=== PATIENT | female | born 1940 | race African-American/Black ===

== ENCOUNTER 2018-03-09 15:42 | Inpatient (IN) | payer MEDICARE ==
[~2018-03-09] VITALS: Ht 165.1 cm; Wt 48.2 kg
[2018-03-09] MEDS ORDERED: GABAPENTIN100 MG PO (15:54)
[2018-03-09] MEDS ORDERED: METFORMIN HCL500 M1 PO (15:55)
[2018-03-09] MEDS ORDERED: VENTOLIN HFA18 GM INH (15:56)
[2018-03-09] MEDS ORDERED: LASIX20 MG PO (15:56)
[2018-03-09] MEDS ORDERED: POTASSIUM CHLOR8 ME1 (15:57)
[2018-03-09] MEDS ORDERED: POTASSIUM CHLOR8 ME1 PO (15:57)
[2018-03-09] MEDS ORDERED: FEXOFENADINE H180 MG PO (15:57)
[2018-03-09] MEDS ORDERED: LUMIGAN 0.01%2.5 ML EACH EYE (15:58)
[2018-03-09] MEDS ORDERED: NORVASC5 MG PO (15:58)
[2018-03-09] MEDS ORDERED: GLUCOTROL 5 MG T5 MG PO (15:58)
[2018-03-09] MEDS ORDERED: MOBIC7.5 MG PO (15:59)
[2018-03-09] MEDS ORDERED: NORCO 10-325 TA1 TAB PO (16:00)
--- NOTE | 2018-03-09 17:25 | NUR ---
AHA DIET MEAL TRAY PROVIDED.
--- NOTE | 2018-03-09 18:03 | NUR ---
RECIEVED PT FORM ER.
--- NOTE | 2018-03-09 19:31 | NUR ---
EVENING ROUNDS COMPLETED. PT SITTING UP IN BED WITH EYES OPEN, RR EVEN AND UNLABORED. BED IN LOW POSITION. NO S/S OF DISTRESS NOTED. INTRODUCED SELF TO PT. PT STATES SHE IS HAVING PAIN IN LOWER EXTREMITIES. CALLED DR SAL AT 1932 AND HE GAVE ORDERED ANALGESIC FOR COMPLAINTS OF PAIN. CALL LIGHT IN REACH. WILL CTM.
--- NOTE | 2018-03-09 19:59 | NUR ---
ADMINISTERED ORDERED ANALGESIC FOR PT COMPLAINTS OF PAIN IN LOWER EXTREMITIES, PT STATES PAIN OF A 9 ON A SCALE OF 0-10.
[2018-03-09 20:00] VITALS: BP 119/62
[2018-03-09 20:00] LABS: THYROID STIMULATING HORMONE 1.25 uIU/mL (0.36-3.74)
--- NOTE | 2018-03-09 23:59 | NUR ---
EVENING MEDICATIONS ADMINISTERED. NO S/S OF DISTRESS. 2100 BLOOD SUAGR WAS 72, RECHECKED AFTER PROVIDING PT EVENING SNACK RECHECKED BLOOD SUAGR AT 109. PT DENIES FURTHER NEEDS. BED IN LOW POSITION. CALL LIGHT IN REACH. WILL CTM.
[2018-03-10] VITALS: BP 113/53
--- NOTE | 2018-03-10 02:27 | NUR ---
PT LYING IN BED WITH EYES CLOSED, RR EVEN AND UNLABORED. BED IN LOW POSITION. 76 SINUS ON TELEMETRY. NO S/S OF DISTRESS NOTED. CALL LIGHT IN REACH. WILL CTM.
[2018-03-10 04:00] VITALS: BP 116/59
--- NOTE | 2018-03-10 04:21 | NUR ---
PT SITTING UP IN BED WITH EYES OPEN, RR EVEN AND UNLABORED. OXYGEN AT 2 LITERS BY NASAL CANNULA. BED IN LOW POSITION. SIDE RAILS UP X2. 76 SINUS ON TELEMETRY. NO S/S OF DISTRESS NOTED. CALL LIGHT IN REACH. DENIES FURTHER NEEDS. WILL CTM.
--- NOTE | 2018-03-10 05:25 | NUR ---
RESTING WITH NO DISTRESS. MONITOR AND CPOC.
[2018-03-10 07:02] LABS: HEMATOCRIT 57.6 % (36.0-48.0); HEMOGLOBIN 16.8 g/dL (12-16); MCH 25.2 pg (26.0-34.0); MCHC 29.2 g/dL (31.0-37.0); MCV 86.5 fL (80.0-100.0); PLATELET COUNT 154 10x3/uL (130-400); RDW 17.6 % (11.5-14.5); WBC 2.6 10x3/uL (4.8-10.8)
[2018-03-10 07:07] LABS: RBC 6.66 10x6/uL (4.00-5.40)
[2018-03-10 07:20] LABS: ALBUMIN 2.9 g/dL (3.4-5.0); ALKALINE PHOSPHATASE 101 U/L (46-116); ALT (SGPT) 18 U/L (10-68); BILIRUBIN - TOTAL 1.21 mg/dL (0.2-1.3); CALC OSMOLALITY 286 mosm/kg (275-300); CALCIUM 8.3 mg/dL (8.5-10.1); CARBON DIOXIDE 39.2 mmol/L (21.0-32.0); CHLORIDE - SERUM 101 mmol/L (98-107); CKMB 2.5 U/L (0.0-3.6); CREATINE KINASE 40 UL (21-215); CREATININE - SERUM 0.7 mg/dL (0.6-1.3); GLUCOSE 109 mg/dL (74-106); POTASSIUM - SERUM 4.9 mmol/L (3.5-5.1); PROTEIN - SERUM 5.4 g/dL (6.4-8.2); SODIUM 144 mmol/L (136-145); UREA NITROGEN 10 mg/dL (7-18); eGFR NON AFRICAN AMERICAN 86 mL/min (90-120)
--- NOTE | 2018-03-10 07:35 | NUR ---
ASSESSMENT DONE. DENIES NEEDS.
[2018-03-10 07:39] LABS: TROPONIN-I 0.128 ng/mL (0.000-0.060)
[2018-03-10 07:45] VITALS: BP 132/58
[2018-03-10 08:06] LABS: LYMPHOCYTES 29 % (15-50); MONOCYTES 12 % (2-11); NEUTROPHILS 59 % (40-80); PLATELET ESTIMATE NORMAL; ROULEAUX OCC
[2018-03-10 11:28] VITALS: BP 122/59
--- NOTE | 2018-03-10 11:59 | NUR ---
RESP UL ON . FAMILY AT BS. CALL LIGHT IN REACH. WILL CONT. PLAN OF CARE.
[2018-03-10 13:25] VITALS: BMI 20.8
--- NOTE | 2018-03-10 13:48 | NUR ---
REFUSED SCD'S PER DEEJAY/DEZ
[2018-03-10 15:38] LABS: HEMATOCRIT 56.4 % (36.0-48.0); HEMOGLOBIN 16.3 g/dL (12-16); MCH 25.4 pg (26.0-34.0); MCHC 28.9 g/dL (31.0-37.0); MCV 87.9 fL (80.0-100.0); RBC 6.42 10x6/uL (4.00-5.40); RDW 17.1 % (11.5-14.5); WBC 2.9 10x3/uL (4.8-10.8)
[2018-03-10 15:43] VITALS: BP 123/56
[2018-03-10 15:46] LABS: PLATELET COUNT 115 10x3/uL (130-400)
[2018-03-10 16:45] LABS: LYMPHOCYTES 35 % (15-50); MONOCYTES 5 % (2-11); NEUTROPHILS 60 % (40-80); PLATELET ESTIMATE DECREASED
--- NOTE | 2018-03-10 17:19 | NUR ---
WITHOUT CHANGES OR DISTRESS NOTED AT THIS TIME. DENIES NEEDS.
--- NOTE | 2018-03-10 19:36 | NUR ---
ASSESSMENT COMPLETE, PT A&O. RESPERATIONS EVEN ON 02 AT 2 LITERS VIA NC. IV TO RIGHT HAND SL, SITE CLEAN AND DRY. PT DENIES NEEDS AT THIS TIME, BED LOW, CL IN REACH.
[2018-03-10 20:00] VITALS: BP 119/62
[2018-03-11] VITALS: BP 107/60
[2018-03-11 04:00] VITALS: BP 111/57
--- NOTE | 2018-03-11 04:13 | NUR ---
LIQUOR STORE MANAGER AT BED SIDE TO OBTAIN VITALS.
[2018-03-11 06:31] LABS: BASOPHILS 0 % (0-2); EOSINOPHILS 0 % (0-7); HEMATOCRIT 59.6 % (36.0-48.0); IMMATURE GRANULOCYTES 0.3 % (0-5); LYMPHOCYTES 19.3 % (15-50); MCH 24.9 pg (26.0-34.0); MCHC 28.5 g/dL (31.0-37.0); MCV 87.1 fL (80.0-100.0); MONOCYTES 15.7 % (2-11); NEUTROPHILS 64.7 % (40-80); PLATELET COUNT 131 10x3/uL (130-400); RDW 17.5 % (11.5-14.5)
[2018-03-11 06:43] LABS: WBC 3.9 10x3/uL (4.8-10.8)
[2018-03-11 06:44] LABS: ALBUMIN 3.2 g/dL (3.4-5.0); ALKALINE PHOSPHATASE 102 U/L (46-116); ALT (SGPT) 19 U/L (10-68); BILIRUBIN - TOTAL 1.84 mg/dL (0.2-1.3); CALC OSMOLALITY 283 mosm/kg (275-300); CALCIUM 8.5 mg/dL (8.5-10.1); CHLORIDE - SERUM 98 mmol/L (98-107); CREATININE - SERUM 0.7 mg/dL (0.6-1.3); GLUCOSE 90 mg/dL (74-106); MAGNESIUM - SERUM 1.9 mg/dL (1.8-2.4); POTASSIUM - SERUM 5.6 mmol/L (3.5-5.1); PROTEIN - SERUM 5.7 g/dL (6.4-8.2); RBC 6.84 10x6/uL (4.00-5.40); SODIUM 143 mmol/L (136-145); UREA NITROGEN 10 mg/dL (7-18); eGFR NON AFRICAN AMERICAN 86 mL/min (90-120)
[2018-03-11 06:59] LABS: CARBON DIOXIDE 44.6 mmol/L (21.0-32.0)
[2018-03-11 08:00] VITALS: BP 124/56
[2018-03-11 09:08] LABS: APPEARANCE CLEAR (CLEAR); BILIRUBIN NEGATIVE (NEGATIVE); COLOR YELLOW (YELLOW); GLUCOSE NEGATIVE (NEGATIVE); KETONE NEGATIVE (NEGATIVE); NITRITE NEGATIVE (NEGATIVE); PROTEIN NEGATIVE (NEGATIVE); UROBILINOGEN NORMAL (NORMAL)
--- NOTE | 2018-03-11 11:00 | NUR ---
UP AMBULATING IN [place] WITH PHYSICAL THERAPY. GAIT STEADY. DENIES ANY NEEDS. CONTINUE PLAN OF CARE AND SAFETY PRECAUTIONS.
[2018-03-11 12:06] VITALS: BP 108/50
[2018-03-11 15:17] VITALS: BP 132/67
--- NOTE | 2018-03-11 18:00 | NUR ---
ALERT AND ORIENTED X4. SITTING UP IN BED. FAMILY AT BEDSIDE. SINUS RHYTHM ON TELEMETRY. DENIES ANY NEEDS. CONTINUE PLAN OF CARE AND SAFETY PRECAUTIONS.
--- NOTE | 2018-03-11 19:38 | NUR ---
RESUMING PATIENT CARE. PATIENT IS ALERT AND ORIENTED, RESTING COMFORTABLY IN BED. RESPIRATIONS ARE EVEN AND UNLABORED. PATIENT DENIES NEEDS. NO S/S OF DISTRESS. NO C/O PAIN. CALL LIGHT WITHIN REACH. WILL CPOC.
[2018-03-11 21:03] VITALS: BP 130/70
[2018-03-12 00:31] VITALS: BP 117/59
[2018-03-12 04:45] LABS: BASOPHILS 0 % (0-2); EOSINOPHILS 0 % (0-7); HEMATOCRIT 59.4 % (36.0-48.0); IMMATURE GRANULOCYTES 0.2 % (0-5); LYMPHOCYTES 23.8 % (15-50); MCH 25.1 pg (26.0-34.0); MCHC 28.6 g/dL (31.0-37.0); MCV 87.7 fL (80.0-100.0); MONOCYTES 17.3 % (2-11); NEUTROPHILS 58.7 % (40-80); PLATELET COUNT 118 10x3/uL (130-400); RDW 18.3 % (11.5-14.5); WBC 4.2 10x3/uL (4.8-10.8)
[2018-03-12 04:52] LABS: RBC 6.77 10x6/uL (4.00-5.40)
[2018-03-12 05:18] LABS: BILIRUBIN - TOTAL 2.31 mg/dL (0.2-1.3); CALCIUM 8.6 mg/dL (8.5-10.1); CREATININE - SERUM 0.8 mg/dL (0.6-1.3); MAGNESIUM - SERUM 1.9 mg/dL (1.8-2.4); POTASSIUM - SERUM 5.4 mmol/L (3.5-5.1); PROTEIN - SERUM 5.5 g/dL (6.4-8.2)
[2018-03-12 05:27] LABS: CARBON DIOXIDE 46.4 mmol/L (21.0-32.0)
[2018-03-12 06:17] VITALS: BP 121/63
[2018-03-12 08:35] VITALS: BP 120/64
[2018-03-12 11:36] VITALS: BP 130/68
[2018-03-12 15:51] VITALS: BP 107/60
--- NOTE | 2018-03-12 18:11 | NUR ---
PT C/O PAIN IN BILAT LEGS AND NECK REQUESTING AND PROVIDED WITH PRN PAIN MEDICATION. PT VOICED THANKS AND DENIES ANY FURTHER NEEDS AT THIS TIME. CL IN REACH. WILL CTM.
--- NOTE | 2018-03-12 19:27 | NUR ---
ASSESSMENT COMPLETE, PT A&O. RESPERATIONS EVEN ON RA. IV TO RIGHT HAND SL, SITE CLEAN AND DRY. PT DENIES PAIN OR NEEDS, BED LOW, CL IN REACH.
[2018-03-12 21:11] VITALS: BP 107/64
[2018-03-13] VITALS (7 sets, daily range): BP systolic 97–141; BP diastolic 49–64
[2018-03-13 07:11] LABS: ALBUMIN 3.2 g/dL (3.4-5.0); BILIRUBIN - TOTAL 2.62 mg/dL (0.2-1.3); CALCIUM 8.8 mg/dL (8.5-10.1); CREATININE - SERUM 0.8 mg/dL (0.6-1.3); MAGNESIUM - SERUM 2.1 mg/dL (1.8-2.4); POTASSIUM - SERUM 4.7 mmol/L (3.5-5.1); PROTEIN - SERUM 5.8 g/dL (6.4-8.2)
[2018-03-13 07:19] LABS: ANION GAP 2.5 mmol/L (8-16)
[2018-03-13 07:30] LABS: CARBON DIOXIDE 47.2 mmol/L (21.0-32.0)
[2018-03-13 07:43] LABS: BASOPHILS 0 % (0-2); EOSINOPHILS 0 % (0-7); HEMATOCRIT 61.6 % (36.0-48.0); HEMOGLOBIN 18.1 g/dL (12-16); IMMATURE GRANULOCYTES 0.2 % (0-5); MCH 25.3 pg (26.0-34.0); MCHC 29.4 g/dL (31.0-37.0); MONOCYTES 15.6 % (2-11); NEUTROPHILS 61.2 % (40-80); PLATELET COUNT 122 10x3/uL (130-400); RDW 17.9 % (11.5-14.5); WBC 4.3 10x3/uL (4.8-10.8)
[2018-03-13 07:50] LABS: RBC 7.16 10x6/uL (4.00-5.40)
--- NOTE | 2018-03-13 08:11 | NUR ---
AWAKE AND ALERT. TELEMERTY SHOWS SR. O2 AT 2 L/M PER NC. SL TO RIGHT HAND. DENIES ANY NEEDS. WILL MONITOR. CALL LIGHT IN REACH
--- NOTE | 2018-03-13 11:55 | NUR ---
RESTING QUIETLY NAD NOTED
[2018-03-13 17:21] LABS: % SATURATION 43 % (15-55); IRON 32 ug/dl (35-150); TOTAL IRON BIND CAPACITY 73 ug/dl (260-445)
[2018-03-13 17:22] LABS: UNSAT IRON BIND CAPACITY 41 ug/dl (150-375)
--- NOTE | 2018-03-13 18:39 | NUR ---
LYING QUIETLY. TELEMERTY SHOWS SR. NO NEEDS VOICED.
--- NOTE | 2018-03-13 20:48 | NUR ---
HS MEDS GIVEN WITH FRESH ICE WATER. NORCO 1 TAB GIVEN FOR C/O GENERALIZED PAIN, RATES PAIN AT AN 8 ON PAIN SCALE.
[2018-03-14] VITALS (13 sets, daily range): BP systolic 73–121; BP diastolic 51–64
[2018-03-14 07:35] LABS: APTT 28.3 SECONDS (22.8-39.4); INR 1.04 (0.85-1.17); PROTIME 13.1 SECONDS (11.6-15.0)
[2018-03-14 07:39] LABS: ALBUMIN 3.1 g/dL (3.4-5.0); BILIRUBIN - TOTAL 1.81 mg/dL (0.2-1.3); CALCIUM 8.4 mg/dL (8.5-10.1); CREATININE - SERUM 0.9 mg/dL (0.6-1.3); MAGNESIUM - SERUM 2.1 mg/dL (1.8-2.4); POTASSIUM - SERUM 4.5 mmol/L (3.5-5.1); PROTEIN - SERUM 5.6 g/dL (6.4-8.2)
[2018-03-14 07:49] LABS: CARBON DIOXIDE 42.5 mmol/L (21.0-32.0)
[2018-03-14 08:10] LABS: BASOPHILS 0.2 % (0-2); EOSINOPHILS 0 % (0-7); HEMOGLOBIN 16.1 g/dL (12-16); IMMATURE GRANULOCYTES 0.4 % (0-5); LYMPHOCYTES 19.2 % (15-50); MCH 24.9 pg (26.0-34.0); MCHC 29.3 g/dL (31.0-37.0); MCV 85.1 fL (80.0-100.0); MONOCYTES 16.6 % (2-11); NEUTROPHILS 63.6 % (40-80); PLATELET COUNT 125 10x3/uL (130-400); RBC 6.46 10x6/uL (4.00-5.40); RDW 17.4 % (11.5-14.5); WBC 5.4 10x3/uL (4.8-10.8)
--- NOTE | 2018-03-14 08:55 | NUR ---
PT WANTING NORCO SWITCHED FROM Q6HP TO Q4HP. SPOKE WITH ESTELA SLAUGHTER AND SHE STATED THAT'S FINE.
--- NOTE | 2018-03-14 09:04 | NUR ---
PT TAKEN FOR BONE MARROW BIOPSY VIA BED.
--- NOTE | 2018-03-14 09:41 | NUR ---
SPOKE WITH CHERIE CHOI FROM IR 2 OF VERSED AND 100 OF [place] AND SHE STATES BEDREST WITH BATHROOM PRIVLEGES FOR A COUPLE HOURSE DRESSING TO THE LOWER LEFT BACK.
--- NOTE | 2018-03-14 09:50 | NUR ---
PT RETURNED FROM BONE MARROW BIOPSY. ALERT AND ORIENTED. LEFT PELVIC DRESSING C/D/I. VS STABLE. PT HAS NO FURTHER NEEDS AT THIS TIME. BED LOW. CL IN REACH.
--- NOTE | 2018-03-14 13:52 | NUR ---
PT C/O HAND CRAMPS. ASKED PT IF SHE WOULD LIKE TO TRY A HOT PACK AND SHE STATED "YES." GOT PT A HOT PACK.
--- NOTE | 2018-03-14 14:04 | NUR ---
PT RECEIVED FRUIT TRAY. FAMILY AT BEDSIDE. NORCO GIVEN FOR PAIN IN LEGS & RIGHT HAND CRAMPS. PT STATES SHE HAS NO FURTHER NEEDS AT THIS TIME. BED LOW. CL IN REACH.
--- NOTE | 2018-03-14 14:55 | NUR ---
PT STATES HER PAIN IS BETTER AND HER HAND IS FEELING BETTER.
--- NOTE | 2018-03-14 16:12 | MORECARE ---
CASE MANAGEMENT DISCHARGE SUMMARY PATIENT: MARILEE ZURITA UNIT: [id number] ADM DATE: 03/09/18 AGE: 77 : 41 SEX: F ROOM/BED: D.6696 AUTHOR: TORREY CLAUDIO PHYSICIAN: REFERRING PHYSICIAN: TIFFANIE SAL MD DATE OF SERVICE: 03/14/18 Discharge Plan Patient Name: MARILEE ZURITA [facility] [facility] 1940 Planned Disposition: Home Anticipated Discharge Date: 03/15/18 Discharge Date: Expected LOS: 6 Initial Reviewer: [email or web address] Initial Review Date: 03/14/2018 Generated: 03/14/18 5:12 pm External Providers External [facility] Next Contact Date: 03/14/2018 Service Request Date: Service Type: Resolution: Reviewer: Comments: Coverage Notice Reviewer: [id number] - Urbano Dunlap Notice Issued Date-Time: 03/14/2018 11:26 Notice Type: IM Discharge Notice Notice Delivered To: Patient Relationship to Patient: Wax Molder Name: Delivery Method: HAND - Hand Delivered Florence Days: Prior Verbal Notification: Recipient Understood Notice: Yes Recipient Signature: Yes Med Rec Note Co-signed by Attending: Coverage Notice Comment: Patient Name: MARILEE ZURITA Page [id number] at 1612 All edits/amendments must be made on the electronic document DICTATION DATE: 03/14/181610 CLINIC ASSISTANT: LEANN 03/14/18 161 RPT#: [id number] DC DATE: STATUS: ADM IN [place] [id number] [place] [address] END OF REPORT
--- NOTE | 2018-03-14 16:33 | MORECARE ---
CASE MANAGEMENT DISCHARGE SUMMARY PATIENT: MARILEE ZURITA UNIT: [id number] ADM DATE: 03/09/18 AGE: 77 : 41 SEX: F ROOM/BED: D.2126 AUTHOR: TORREY CLAUDIO PHYSICIAN: REFERRING PHYSICIAN: TIFFANIE SAL MD DATE OF SERVICE: 03/14/18 Discharge Plan Patient Name: MARILEE ZURITA Facility: [facility]:[place] : 1940 Planned Disposition: Home Anticipated Discharge Date: 03/15/18 Discharge Date: Expected LOS: 6 Initial Reviewer: [email or web address] Initial Review Date: 03/14/2018 Generated: 03/14/18 5:33 pm DCPIA - Discharge Planning Initial Assessment Updated by [id number]: Urbano Dunlap on 03/14/18 4:32 pm * Is the patient Alert and Oriented? Yes * How many steps to enter\exit or inside your home? * PCP DR. YANCEY IN [place] * Pharmacy [facility] IN [place] * Preadmission Environment Home Alone * ADLs Independent * Equipment Oxygen * Other Equipment HOME AND PORTABLE OXYGEN [place], [place]. [phone] * List name and contact numbers for known caregivers / representatives who currently or will assist patient after discharge: IGLESIA ZURITA, DUSTIN, * Verbal permission to speak to the caregivers and representatives has been obtained from the patient. Yes * Community resources currently utilized None * Please name any agencies selected above. NONE * Additional services required to return to the preadmission environment? No * Can the patient safely return to the preadmission environment? Yes * Has this patient been hospitalized within the prior 30 days at any hospital? No Coverage Notice Reviewer: [id number] - Urbano Dunlap Notice Issued Date-Time: 03/14/2018 11:26 Notice Type: IM Discharge Notice Notice Delivered To: Patient Relationship to Patient: Card Lacer Name: Delivery Method: HAND - Hand Delivered Florence Days: Prior Verbal Notification: Recipient Understood Notice: Yes Recipient Signature: Yes Med Rec Note Co-signed by Attending: Coverage Notice Comment: Last DP export: 03/14/18 3:12 pm Patient Name: MARILEE ZURITA Page [id number] at 1633 All edits/amendments must be made on the electronic document DICTATION DATE: 03/14/181631 NUTRITION ASSOCIATE: LEANN 03/14/181631 RPT#: [id number] DC DATE: STATUS: ADM IN [facility] [address] [place] [address] END OF REPORT
--- NOTE | 2018-03-14 16:42 | MORECARE ---
CASE MANAGEMENT DISCHARGE SUMMARY PATIENT: MARILEE ZURITA UNIT: [id number] ADM DATE: 03/09/18 AGE: 77 : 41 SEX: F ROOM/BED: D.9552 AUTHOR: GONZÁLEZ,DOC PHYSICIAN: REFERRING PHYSICIAN: TIFFANIE SAL MD DATE OF SERVICE: 03/14/18 Discharge Plan Patient Name: MARILEE ZURITA Facility: [facility]:[place] : 1940 Planned Disposition: Home Anticipated Discharge Date: 03/15/18 Discharge Date: Expected LOS: 6 Initial Reviewer: [email or web address] Initial Review Date: 03/14/2018 Generated: 03/14/18 5:42 pm Comments DCP- Discharge Planning Updated by [email or web address]: Urbano Dunlap on 03/14/18 3:[address] Patient Name: MARILEE ZURITA Encounter No: [id number] : 1940 Primary Insurance: MEDICARE A & B Anticipated DC Date: 03-15-2018 Planned Disposition: Home DISCHARGE PLANNING NOTE: CM MET WITH PT IN ROOM TO DISCUSS DISCHARGE PLANNING AND NEEDS. PT REPORTS LIVING AT HOME INDEPENDENTLY AND ALONE. PT HAS HOME OXYGEN FROM UNKNOWN PROVIDER. PT HAS NO OUTSIDE SERVICES ASSISTING IN THE HOME. CM DISCUSSED AVAILABILITY OF HOME HEALTH, REHAB SERVICES AND MEDICAL EQUIPMENT. PT DENIES DISCHARGE NEEDS, REPORTS HER SON WILL PICK HER UP FOR DISCHARGE HOME. IMPORTANT MESSAGE FROM MEDICARE PROVIDED AND EXPLAINED. CM RECEIVED ORDER FOR NEBULIZER AND PORTABLE OXYGEN. CM MET WITH PT AND SON IN ROOM. MARILEE ZURITA provided verbal consent to discuss current and ongoing needs with/in the presence of: IGLESIA ZURITA, SON, FAMILY REPORTS THAT THE MEDICAL EQUIPMENT [employer] IS IN [place] [employer], THAT IS WHO THEY WANT OXYGEN AND NEBULIZER FROM. CM CALLED [facility], , SPOKE TO LARISSA WHO VERIFIED PT CUSTOMER, VERIFIED PT HAS HOME AND PORTABLE OXYGEN AT HOME. CM FAXED ORDER FOR NEBULIZER TO [facility] AT [phone]. [facility] TO ARRANGE HOME DELIVERY OF NEBULIZER. PT NOTIFIED WHO STATES SHE WILL NOTIFY HER FAMILY TO BRING THE PORTABLE BOTTLES FROM HOME, CM EXPLAINED SHE NEEDED ONLY ONE. PT REPORTS UNDERSTANDING. CM CALLED IGLESIA BERKOIWTZ, , WHO VERIFIED THEY DO HAVE ACCESS TO PT'S HOME AND HE WILL BRING A PORTABLE OXYGEN BOTTLE FROM PT'S HOME TO C.O.D. CLERK PT. CM NOTIFIED IGLESIA THAT THE NEBUIZER WOULD BE DELIVERED TO PT'S HOME BY [employer]. PT TO DISCHARGE HOME WITH SON TO TRANSPORT. SON WILL BRING PORTABLE OXGYEN FROM PT'S HOME FOR DISCHARGE. [facility] TO ARRANGE DELIVERY OF NEBULIZER TO PT'S HOME. Urbano Dunlap, CASE MANAGEMENT DCPIA - Discharge Planning Initial Assessment Updated by [id number]: Urbano Dunlap on 03/14/18 4:32 pm * Is the patient Alert and Oriented? Yes * How many steps to enter\exit or inside your home? * PCP DR. YANCEY IN [place] * Pharmacy [facility] IN [place] * Preadmission Environment Home Alone * ADLs Independent * Equipment Oxygen * Other Equipment HOME AND PORTABLE OXYGEN [place], [place]. [phone] * List name and contact numbers for known caregivers / representatives who currently or will assist patient after discharge: IGLESIA ZURITA, DUSTIN, * Verbal permission to speak to the caregivers and representatives has been obtained from the patient. Yes * Community resources currently utilized None * Please name any agencies selected above. NONE * Additional services required to return to the preadmission environment? No * Can the patient safely return to the preadmission environment? Yes * Has this patient been hospitalized within the prior 30 days at any hospital? No Coverage Notice Reviewer: [id number] - Urbano Dunlap Notice Issued Date-Time: 03/14/2018 11:26 Notice Type: IM Discharge Notice Notice Delivered To: Patient Relationship to Patient: Traveling Buyer Name: Delivery Method: HAND - Hand Delivered Florence Days: Prior Verbal Notification: Recipient Understood Notice: Yes Recipient Signature: Yes Med Rec Note Co-signed by Attending: Coverage Notice Comment: Last DP export: 03/14/18 3:33 pm Patient Name: MARILEE ZURITA Page 11225 at 1642 All edits/amendments must be made on the electronic document DICTATION DATE: 03/14/181640 PUTTY GLAZER: LEANN 03/14/181640 RPT#: [id number] DC DATE: STATUS: ADM IN [facility] [address] [place] [address] END OF REPORT
--- NOTE | 2018-03-14 18:07 | NUR ---
PADMINI BUSINESS INTELLIGENCE ADMINISTRATOR STATED TO ME TO CALL [facility] AND NOTIFY THEM PT HAS A RESPIRATORY CONSULT FOR HOME AND PORTABLE OXYGEN NEEDS. CALLED AND SPOKE WITH [facility] ABOUT THIS AND THEY VERBALIZED UNDERSTANDING.
[2018-03-15 03:47] VITALS: BP 107/56
[2018-03-15 05:04] LABS: HEMATOCRIT 52.3 % (36.0-48.0); HEMOGLOBIN 15.5 g/dL (12-16); MCH 25.4 pg (26.0-34.0); MCHC 29.6 g/dL (31.0-37.0); MCV 85.6 fL (80.0-100.0); PLATELET COUNT 118 10x3/uL (130-400); RBC 6.11 10x6/uL (4.00-5.40); RDW 16.9 % (11.5-14.5)
[2018-03-15 05:29] LABS: EOSINOPHILS 1 % (0-7); LYMPHOCYTES 21 % (15-50); MONOCYTES 14 % (2-11); NEUTROPHILS 64 % (40-80); PLATELET ESTIMATE DECREASED
[2018-03-15 05:35] LABS: ALKALINE PHOSPHATASE 90 U/L (46-116); ALT (SGPT) 23 U/L (10-68); BILIRUBIN - TOTAL 2.49 mg/dL (0.2-1.3); CALC OSMOLALITY 284 mosm/kg (275-300); CALCIUM 8.4 mg/dL (8.5-10.1); CHLORIDE - SERUM 95 mmol/L (98-107); CREATININE - SERUM 0.7 mg/dL (0.6-1.3); GLUCOSE 121 mg/dL (74-106); POTASSIUM - SERUM 4.3 mmol/L (3.5-5.1); PROTEIN - SERUM 5.7 g/dL (6.4-8.2); SODIUM 140 mmol/L (136-145); UREA NITROGEN 26 mg/dL (7-18); eGFR NON AFRICAN AMERICAN 86 mL/min (90-120)
[2018-03-15 05:39] LABS: CARBON DIOXIDE 46.2 mmol/L (21.0-32.0)
--- NOTE | 2018-03-15 07:32 | NUR ---
RECEIVED REPORT, PATIENT IS RESTING WITH EYES CLOSED, AROUSES EASILY. DENIES NEEDS WHEN ASKED. ON 2L PER NC. ON HEART MONITOR SHOWING ST, HR 106. RIGHT HAND PIV SEEN WITH SALINE LOCK. ON EP, K+ IS 4.3. WILL MONITOR FOR ANY NEEDS.
[2018-03-15 08:46] VITALS: BP 103/66
[2018-03-15 10:38] VITALS: BP 108/66; Ht 165.1 cm; Wt 48.2 kg
--- NOTE | 2018-03-15 12:44 | NUR ---
REQUESTING LARGE GLASS OF ICE, GIVEN. DENIES FURTHER NEEDS AT THIS TIME.
[2018-03-15 16:25] VITALS: BP 108/66
--- NOTE | 2018-03-15 17:58 | NUR ---
PM LASIX DOSE GIVEN. PATIENT WAS UP IN THE ROOM PAST RESTROOM USE WITHOUT HER OXYGEN ON. I ENCOURAGED HER TO PLEASE WEAR IT (CORD IS LONG ENOUGHT TO GO TO RESTROOM) HER OXYGEN LEVEL HAS DROPPED EARILER WITH [facility].
[2018-03-15 19:50] VITALS: BP 152/76
--- NOTE | 2018-03-15 22:19 | NUR ---
INITIAL ROUNDS COMPLETED AT 1915 HRS. PT DENIED ANY DISCOMFORT. ASSESSMENT COMPLETED AT 194 HRS. VSS. SR PER CM HR 95. O3 2LNC. IV TO R HAND SL. LUNGS DIMINISHED IN BASES BILAT. DRESSING TO L ILLIAC CREST CLEAN, DRY AND INTACT. ALERT AND ORIENTED TO PERSON, PLACE AND TIME. RODARTE. PM FABA 157. 2 UNITS HUMALOG GIVEN GIVEN SUB-Q TO UPPER L ARM. PM MEDS GIVEN INCLUDING NORCO FOR C/O NECK AND LEG PAIN. PT CURRENTLY RESTING WITH EYES CLOSED. RESP EVEN AND REGULAR. SR UP X2, CALL LIGHT WITHIN REACH.
[2018-03-15 23:35] VITALS: BP 103/49
--- NOTE | 2018-03-15 23:53 | NUR ---
PT RESTING WITH EYES CLOSED. RESP EVEN AND REGULAR. SR UP X2, CALL LIGHT WITHIN REACH.
--- NOTE | 2018-03-16 02:36 | NUR ---
PT RESTING WITH EYES CLOSED. RESP EVEN AND REGULAR. SR UP X2, CALL LIGHT WITHIN REACH.
[2018-03-16 03:55] VITALS: BP 107/57
--- NOTE | 2018-03-16 04:24 | NUR ---
NORCO 10/325 PO GIVEN FOR C/O CHRONIC NECK AND LEG PAIN. CALL LIGHT WITHIN REACH.
[2018-03-16 05:34] LABS: BASOPHILS 0 % (0-2); EOSINOPHILS 0 % (0-7); HEMATOCRIT 52.8 % (36.0-48.0); HEMOGLOBIN 15.1 g/dL (12-16); IMMATURE GRANULOCYTES 0.2 % (0-5); LYMPHOCYTES 17.8 % (15-50); MCHC 28.6 g/dL (31.0-37.0); MONOCYTES 19.6 % (2-11); NEUTROPHILS 62.4 % (40-80); RBC 6.03 10x6/uL (4.00-5.40); WBC 4.4 10x3/uL (4.8-10.8)
[2018-03-16 05:38] LABS: MCV 87.6 fL (80.0-100.0); PLATELET COUNT 104 10x3/uL (130-400)
[2018-03-16 06:04] LABS: ANION GAP 5.7 mmol/L (8-16); CALCIUM 8.7 mg/dL (8.5-10.1); CARBON DIOXIDE 39.3 mmol/L (21.0-32.0)
[2018-03-16 06:08] LABS: CREATININE - SERUM 0.9 mg/dL (0.6-1.3)
--- NOTE | 2018-03-16 06:25 | NUR ---
VSS THROUGHOUT NIGHT. SR PER CM. PT STATED NORCO PO CONTROLLED HER ARTHRITIC PAIN. NEEDS MET; WILL CONTINUE TO MONITOR.
--- NOTE | 2018-03-16 07:00 | NUR ---
RECEIVED REPORT. ASSUMED CARE OF PATIENT. CALL LIGHT WITHIN REACH. [facility]ORY TH[facility] AT BEDSIDE PROVIDING BREATHING TX. SR, 90 ON TELEMETRY. DENIES NEEDS AT THIS TIME. NO DISTRESS.
[2018-03-16 08:49] VITALS: BP 101/63
--- NOTE | 2018-03-16 10:53 | NUR ---
MEDICATED FOR PAIN AT THIS TIME. NO DISTRESS.
--- NOTE | 2018-03-16 11:08 | NUR ---
FSBS 238. 4 UNITS HUMALOG ADMINISTERED PER SLIDING SCALE. NO DISTRESS.
[2018-03-16 11:55] VITALS: BP 103/61
[2018-03-16] MEDS ORDERED: LASIX40 MG PO (12:10)
[2018-03-16 13:46] VITALS: BP 103/61
--- NOTE | 2018-03-16 13:57 | NUR ---
20 GAUGE IV REMOVED FROM RIGHT HAND. CATHETER TIP INTACT. NO BLEEDING FROM SITE. 2X2 GAUZE APPLIED AND SECURED WITH BANDAID. DISCHARGE INSTRUCTIONS PROVIDED TO PATIENT. PATIENT QUESTIONED ABOUT BEING ABLE TO READ AND WRITE. PATIENT STATES SHE CAN ONLY WRITE A LITTLE, NOT READ VERY WELL AT ALL. WENT OVER DISCHARGE INSTRUCTIONS MULTIPLE TIMES AND ANSWERED ALL QUESTIONS. QUESTIONED PATEINT IF THERE IS SOMEONE THAT CAN READ HER PAPERWORK ONCE SHE GETS HOME AND SHE STATED YES. PATIENT HAS HOME PORTABLE OXYGEN WITH HER AND INSTRUCTED BY [facility], JOHNNIE, THAT SHE NEEDS TO WEAR HER OXYGEN AT ALL TIMES ON 3 LITERS. SHOWED PATIENT THE NUMBER 3 ON THE TANK SO SHE WOULD BE ABLE TO RECOGNIZE HOW MUCH OXYGEN SHE NEEDS TO TAKE. PATIENT VERBALIZED UNDERSTANDING OF ALL INSTRUCTIONS PROVIDED BY RECALL. PATIENT GETTING DRESSED AT THIS TIME AND AWAITING FOR HER RIDE.
--- NOTE | 2018-03-16 14:15 | NUR ---
PATIENT LEFT UNIT VIA WHEELCHAIR. PATIENT DISCHARGED TO HOME. NO DISTRESS UPON LEAVING UNIT. PATIENT LEFT UNIT WITH ALL PERSONAL BELONGINGS.
--- NOTE | 2018-03-17 11:43 | MORECARE ---
CASE MANAGEMENT DISCHARGE SUMMARY PATIENT: MARILEE ZURITA UNIT: [id number] ADM DATE: 03/09/18 AGE: 77 : 41 SEX: F ROOM/BED: D.3328 AUTHOR: GONZÁLEZ,DOC PHYSICIAN: REFERRING PHYSICIAN: TIFFANIE SAL MD DATE OF SERVICE: 03/17/18 Discharge Plan Patient Name: MARILEE ZURITA Facility: [facility]:[place] : 1940 Planned Disposition: Home Anticipated Discharge Date: 03/16/18 Discharge Date: 03/16/2018 Expected LOS: 7 Initial Reviewer: [email or web address] Initial Review Date: 03/14/2018 Generated: 03/17/18 12:43 pm Comments DCP- Discharge Planning Updated by [id number]: Urbano Dunlap on 03/14/18 3:[address] Patient Name: MARILEE ZURITA Encounter No: [id number] : 1940 Primary Insurance: MEDICARE A & B Anticipated DC Date: 03-15-2018 Planned Disposition: Home DISCHARGE PLANNING NOTE: CM MET WITH PT IN ROOM TO DISCUSS DISCHARGE PLANNING AND NEEDS. PT REPORTS LIVING AT HOME INDEPENDENTLY AND ALONE. PT HAS HOME OXYGEN FROM UNKNOWN PROVIDER. PT HAS NO OUTSIDE SERVICES ASSISTING IN THE HOME. CM DISCUSSED AVAILABILITY OF HOME HEALTH, REHAB SERVICES AND MEDICAL EQUIPMENT. PT DENIES DISCHARGE NEEDS, REPORTS HER SON WILL PICK HER UP FOR DISCHARGE HOME. IMPORTANT MESSAGE FROM MEDICARE PROVIDED AND EXPLAINED. CM RECEIVED ORDER FOR NEBULIZER AND PORTABLE OXYGEN. CM MET WITH PT AND SON IN ROOM. MARILEE ZURITA provided verbal consent to discuss current and ongoing needs with/in the presence of: IGLESIA ZURITA, SON, FAMILY REPORTS THAT THE MEDICAL EQUIPMENT [employer] IS [place] [employer], THAT IS WHO THEY WANT OXYGEN AND NEBULIZER FROM. CM CALLED [facility], , SPOKE TO LARISSA WHO VERIFIED PT CUSTOMER, VERIFIED PT HAS HOME AND PORTABLE OXYGEN AT HOME. CM FAXED ORDER FOR NEBULIZER TO [facility] AT [phone]. [facility] TO ARRANGE HOME DELIVERY OF NEBULIZER. PT NOTIFIED WHO STATES SHE WILL NOTIFY HER FAMILY TO BRING THE PORTABLE BOTTLES FROM HOME, CM EXPLAINED SHE NEEDED ONLY ONE. PT REPORTS UNDERSTANDING. CM CALLED IGLESIA BERKOWITZ, , WHO VERIFIED THEY DO HAVE ACCESS TO PT'S HOME AND HE WILL BRING A PORTABLE OXYGEN BOTTLE FROM PT'S HOME TO TEACHERS ASSISTANT PT. CM NOTIFIED IGLESIA THAT THE NEBUIZER WOULD BE DELIVERED TO PT'S HOME BY [employer]. PT TO DISCHARGE HOME WITH SON TO TRANSPORT. SON WILL BRING PORTABLE OXGYEN FROM PT'S HOME FOR DISCHARGE. [facility] TO ARRANGE DELIVERY OF NEBULIZER TO PT'S HOME. Urbano Dunlap, CASE MANAGEMENT DCPIA - Discharge Planning Initial Assessment Updated by [email or web address]: Urbano Dunlap on 03/14/18 4:32 pm * Is the patient Alert and Oriented? Yes * How many steps to enter\exit or inside your home? * PCP DR. YANCEY IN [place] * Pharmacy [facility] IN [place] * Preadmission Environment Home Alone * ADLs Independent * Equipment Oxygen * Other Equipment HOME AND PORTABLE OXYGEN [facility], [place]. [phone] * List name and contact numbers for known caregivers / representatives who currently or will assist patient after discharge: IGLESIA ZURITA, DUSTIN, * Verbal permission to speak to the caregivers and representatives has been obtained from the patient. Yes * Community resources currently utilized None * Please name any agencies selected above. NONE * Additional services required to return to the preadmission environment? No * Can the patient safely return to the preadmission environment? Yes * Has this patient been hospitalized within the prior 30 days at any hospital? No Coverage Notice Reviewer: [id number] - Urbano Dunlap Notice Issued Date-Time: 03/14/2018 11:26 Notice Type: IM Discharge Notice Notice Delivered To: Patient Relationship to Patient: Non Linear Editor Name: Delivery Method: HAND - Hand Delivered Florence Days: Prior Verbal Notification: Recipient Understood Notice: Yes Recipient Signature: Yes Med Rec Note Co-signed by Attending: Coverage Notice Comment: Last DP export: 03/14/18 3:42 pm Patient Name: MARILEE ZURITA Page 49225 at 1143 All edits/amendments must be made on the electronic document DICTATION DATE: 03/17/18 1143 ANESTHESIOLOGY TEACHER: LEANN 03/17/18 1143 RPT#: [id number] DC DATE:03/16/18 STATUS: DIS IN [facility] [address] [place] [address] END OF REPORT
== END 2018-03-16 14:15 | disposition home or self-care (01) | DRG 291 ==
LOC: D.ER 15:42 → D.M2 17:31
PROVIDERS: Family Medicine; General Practice; Internal Medicine Hematology & Oncology; Internal Medicine Pulmonary Disease; Specialist; ADMIT Internal Medicine Nephrology
PROC: 07DR3ZX Extraction of Iliac Bone Marrow, Percutaneous Approach, Diagnostic (ICD-10-PCS; principal; 2018-03-14 09:35)
DX: I11.0 Hypertensive heart disease with heart failure (principal); J96.92 Respiratory failure, unspecified with hypercapnia; E11.40 Type 2 diabetes mellitus with diabetic neuropathy, unspecified; J43.9 Emphysema, unspecified; R91.1 Solitary pulmonary nodule; I27.20 Pulmonary hypertension, unspecified; I07.1 Rheumatic tricuspid insufficiency; J30.9 Allergic rhinitis, unspecified; E87.5 Hyperkalemia; D69.6 Thrombocytopenia, unspecified; I50.33 Acute on chronic diastolic (congestive) heart failure; D45 Polycythemia vera